=== PATIENT | female | born 1975 | race Caucasian/White ===

== ENCOUNTER 2019-12-11 06:31 | Day surgery (SDC) | payer OTHER ==
[2019-12-08 13:51] LABS: Urine Appearance CLOUDY; Urine Bilirubin NEGATIVE (NEG); Urine Blood TRACE (NEG); Urine Color YELLOW; Urine Glucose NEGATIVE (NEG); Urine Protein NEGATIVE (NEG); Urine Specific Gravity 1.025 (1.005-1.030)
[2019-12-08 13:52] LABS: Absolute Lymphocytes (CBC) 2.2 K/uL (0.7-4.9); Basophils % 0.8 % (0-1.3); Hematocrit 38.5 % (36.0-45.0); Lymphocytes % 26.2 % (15.3-44.8); MPV 7.9 fL (7.6-11.3); RBC Red Blood Cell Count 4.73 M/uL (3.86-4.86)
[2019-12-08 13:54] LABS: Urine Microscopic Reflex ORDER UMIC
[2019-12-08 14:04] LABS: Urine Bacteria <20 /HPF (<20); Urine Culture Reflex Order REFLEXED; Urine Mucus 2+ /HPF (NONE SEEN); Urine RBC <5 /HPF (NONE SEEN)
[2019-12-11 06:46] LABS: Specific Gravity 1.025 (1.005-1.030)
[2019-12-11] MEDS ORDERED: SCOPOLAMINE HYDROBROMIDE PATCH TD ONE ×2 (06:55→07:00)
[2019-12-11] MEDS ORDERED: Ringers Lactate 1,000 ML IV ONE ×2 (06:55→07:02)
[2019-12-11] MEDS ORDERED: BUPIVACAINE 0.25% PF 30 ML VIAL ONE (07:03)
[2019-12-11] MEDS ORDERED: propofoL 200 MG/20 ML VIAL IV ONE (07:28)
[2019-12-11] MEDS ORDERED: ROCURONIUM 50 MG/5 ML VIAL IV ONE (07:28)
[2019-12-11] MEDS ORDERED: dexAMETHasone 10 MG/ML VIAL ONE ×2 (07:28→11:44)
[2019-12-11] MEDS ORDERED: LIDOCAINE 2% MPF 5 ML VIAL ONE (07:29)
[2019-12-11] MEDS ORDERED: FENTANYL CITR 250 MCG/5 ML ONE (07:29)
[2019-12-11] MEDS ORDERED: KETOROLAC 30 MG/ML INJ ONE ×2 (07:29→11:58)
[2019-12-11] MEDS ORDERED: MIDAZOLAM HCL 2 MG/2 ML INJ ONE (07:30)
[2019-12-11] MEDS ORDERED: ONDANSETRON 4 MG/2 ML VIAL ONE ×2 (07:30→12:24)
[2019-12-11] MEDS: CEFAZOLIN/SWI 2gm 2 GM/20 ML SYR ONE ×2 (07:35→07:44)
[2019-12-11] MEDS: Ringers Lactate 1,000 ML IV ONE ×2 (08:39→08:48)
[2019-12-11] MEDS ORDERED: NS 0.9% VIAL 30 ML ONE (08:48)
[2019-12-11] MEDS ORDERED: VECURONIUM 10 MG/VIAL IV ONE (08:51)
[2019-12-11] MEDS ORDERED: MORPHINE 10 MG/ML VIAL ONE (10:01)
[2019-12-11] MEDS ORDERED: GLYCOPYRROLATE 0.2 MG/ML SYR ONE (10:40)
[2019-12-11] MEDS ORDERED: NEOSTIGMINE 1 MG/ML -5 ML ONE (10:48)
[2019-12-11] MEDS ORDERED: HYDROCODONE/APAP 5/325 MG TAB ONE (12:37)
[2019-12-11] MEDS ORDERED: PROMETHAZINE INJ 25 MG/ML AMP ONE (12:40)
[2019-12-11 13:03] VITALS: TEMP 98
[2019-12-11 13:05] VITALS: BP 126/63; O2SAT 98
--- NOTE | 2019-12-11 21:29 | OP ---
Date of Procedure: 12/11/2019 Surgeon: Lorri Cha MD Injection Molding Machine Operator: Nava Garcia. Preoperative Diagnoses: 1.Menorrhagia. 2.Endometrial atypia (AUB-M). Postoperative Diagnoses: 1.Menorrhagia. 2.Endometrial atypia (AUB-M). 3.Significant bladder adhesions and omental adhesions. Procedures Performed: Total laparoscopic hysterectomy, bilateral salpingo-oophorectomy, pelvic washi ngs, lysis of adhesions, omentum and bladder. Anesthesia: General endotracheal. Estimated Blood Loss: Minimal. Specimens: Uterus, bilateral tubes and ovaries, pelvic washings. Complications: None. Drains: None. Condition: Patient's condition is stable. Findings: Uterus completely adhered to the anterior abdominal wall. Significant dense adhesions. O mentum adhered to the uterus and the anterior abdominal wall as well, likely from the consequence of her section. There were bladder adhesions at the level of the scar as well. Indications: Patient is a 44-year-old with bleeding, on sampling had endometrial atypia. This has a 40% chance of underlying malignancy. The patient had already waited to do her surgery now. This wa s an urgent surgery that had to be done to prevent progression to invasive cancer or if invasive canc er was already present, that it would not advance by the time the COVID-19 crisis is complete and vicky t would change the outcome of the patient. Description Of Procedure: After informed consent was verified, patient was taken back to the OR and placed in a supine fashion on the operating table. General anesthesia given. Ancef 2 g were given. After she was placed in a dorsal lithotomy position, pelvic exam was performed. Cervix was pulled u p. Uterus appeared to be not mobile, stuck to the anterior abdominal wall, probably like to her C-se ction scar. No adnexal masses were palpable. Cul-de-sac free. After abdomen, vulva, vagina, and perineum were prepped and draped in a sterile fashion, a Thomson was placed to drain the bladder and attached with cysto-tubing for retrograde filling. Then, a large VCa re was introduced into the uterus and fixed in place. In the middle of the case after I encountered problems with the VCare cup being too large and could n ot see it at the level on the vaginal wall, which could lead to more loss of vaginal canal length, I changed it to a medium VCare. After 1 cm infraumbilical incision was made with a scalpel and fascia was tagged with 0 Vicryl suture s, peritoneum entered sharply. S-retractors were placed. Josemanuel introduced. Local injection was do ne at the level of the skin, the fascia, and also all the subsequent laparoscopic ports. A 5 mm left lower quadrant port was placed under direct vision. Upper abdomen unremarkable. Omentum unremarkable. The omentum was adhered to the anterior abdominal wall just below the level of the um bilicus all the way down to the uterus and on top of the uterus as well and the bladder. Omental adh esions were first taken down by push-spread technique creating windows. Once this was dropped down, then the uterine adhesions were visualized. Dissection was performed to separate the preperitoneal s pace and the bladder from the uterus, making sure that no part of the uterine wall was stuck with it. Once the bladder adhesions were taken down from the retroperitoneal space and the anterior abdomina l wall, then came down to the level of the adhesions at the scar. Then, peritoneum was ope raina up sideways going to the round ligament on the left side and onto the right side. Then came down and took down the adhesions in the suprapubic space getting to the vesicovaginal space. It was diff icult to identify the bladder and then the VCare cup was very low after filling and draining the blad santos knowing the margin of the bladder. Then, the VCare cup was changed as dictated before. Once thi s was done, it was much more visible and the bladder adhesions were systematically taken down with sh javier dissection all the way down to the level of the cup and passed it at least 1.5 cm to create a mar gin where I could close the vaginal cuff. Once this was done, the adhesions were taken down laterall y as well until I had the bladder pillars. I came down upon the top. Both ureters were visualized from the pelvic brim to the ureteric tunnel. There was no anatomical distortion at this point. On the right side, there was slight scarring lead ing to a pocket of omentum, possibly from her old endometriosis, but no implants were seen. The tube was taken on the left side with the LigaSure and removed and handed out. The left ovary was removed as well. Then, the utero-ovarian ligament taken down to separate this and this was using a Lapra-Ty placed in the right lower quadrant for later removal through the colpotomy incision. Then, the broad ligament was taken down. The broad ligament was dissected to expose the vessels. Th ere was significant amount of scarring here that was also taken down in order for me to expose the ve ssels. Posteriorly, the peritoneum was taken down to the level of the uterosacral. I was able to id entify a good plane, which took me down there. The ureter was very lateral inferior. On the opposite side, similar dissection was performed taking down the tube, then the utero-ovarian l igament, mesosalpinx. Then the round ligament was taken down. The broad ligament had significant am ount of scarring here as well and once this was taken down with a help of the LigaSure, the vessels w ere identified. Posteriorly, the peritoneum had to be picked up and separately dissected to the leve l of the uterosacral. Once the vessels were skeletonized, the anterior vaginal wall at the cup was c arefully dissected. Monopolar was used to enter the vesicovaginal space and the space was dissected inferiorly and there was good clearance of the bladder at this point as well as in the midline as wel l as on the lateral aspect. Then, the vessels were taken down with the help of the large bipolar tip and then the LigaSure was used to cauterize and cut the uterine artery and vein. Then, the cardinal ligaments and rest of the vessels were taken down with the help of the bipolar basket tip and the Ara Joya. Similar dissection was performed on the opposite side taking down the basket and taking down the vessels with the help of the basket tip and the LigaSure. Then, the cardinal ligaments were harsh en down as well. Then, the colpotomy was performed with a monopolar hook blade in a circumferential fashion. Specimen detached and pulled out through the vagina. Slight difficulty was encountered, but by rotating, we could easily pull it out. Then, the ovary on the right side was removed with the help of the LigaSure and both ovaries were retrieved through the vagina. Thorough irrigation and suction were performed. There was an anterior vaginal vessel that w as bleeding on the colpotomy and this was cauterized with the help of the medium tip bipolar. Closed the vaginal cuff with the help of 0 Vicryl sutures, 2 simple 0 Vicryl sutures at both angles, and 3 ninous-fr-wowbc in the center with excellent closure and support included the posterior wall, rectova ginal septum, and anterior vaginal wall connective tissue as well. With excellent closure and hemost asis, thorough irrigation and suction performed. Both ureters were visualized. No electrical, mecha nical, or thermal injury was noted. After the gas was desufflated, vaginal sponge was removed. Fole y was removed. Thorough irrigation and suction of the abdominal cavity was performed. All trocars w ere removed under direct vision. Fascia and skin injected with 0.25% Marcaine at all 3 incision site s. The fascia at the umbilicus was closed with a yyvfov-ai-nldjn with sutures tied to each other vicky t were placed for tension and then 0 Vicryl sutures simple at the suprapubic fascial incision. All s kin incisions were closed with the help of 3-0 chromic and then Steri-Strips placed. Vagina was ruslan raina up. Instrument, needle, and sponge counts correct at the end of the case. Patient tolerated the procedure well. She was taken to the PACU in a stable condition after full recovery. RENETTA/KOBI Voice ID: [id number] Report ID: [id number]
== END 2019-12-11 14:30 | disposition home or self-care (01) ==
LOC: OR 06:31
PROVIDERS: ATTEND Obstetrics & Gynecology
PROC: 0UT24ZZ Resection of Bilateral Ovaries, Percutaneous Endoscopic Approach (ICD-10-PCS; 2019-12-11)
PROC: 0UT74ZZ Resection of Bilateral Fallopian Tubes, Percutaneous Endoscopic Approach (ICD-10-PCS; 2019-12-11)
PROC: 0UT94ZZ Resection of Uterus, Percutaneous Endoscopic Approach (ICD-10-PCS; principal; 2019-12-11 07:30)
DX: N92.1 Excessive and frequent menstruation with irregular cycle (principal); N85.02 Endometrial intraepithelial neoplasia [EIN]; N95.1 Menopausal and female climacteric states; N83.12 Corpus luteum cyst of left ovary; N83.11 Corpus luteum cyst of right ovary; N32.89 Other specified disorders of bladder; K66.0 Peritoneal adhesions (postprocedural) (postinfection); I10 Essential (primary) hypertension; F32.9 Major depressive disorder, single episode, unspecified; F41.9 Anxiety disorder, unspecified; Z79.899 Other long term (current) drug therapy
CPT/HCPCS: 87088; 85025; 87086; 36415; 86900; 88108; 86850; 81025; 86901; 88305; 88309; 58571; J2704; J2550; J2250; J3010; J1100 ×2; J2710; J0690; J7120 ×3; J2405 ×2; 81003; 81015; 88307

== ENCOUNTER 2024-06-19 19:08 | Emergency (ER) | payer OTHER ==
--- OUTSIDE RECORDS SUMMARY | 2024-06-19 19:10 | XMS REPORT | Continuity of Care Document ---
Author Name Unknown Address [address] [place] [address] [address] [place] [address] [facility] Address [address] [facility] [address] [place] [address] Care Team Providers Care Financial Reporting Analyst Name Role Phone [email or web address] Attending Clinician NIGEL Mike Attending Clinician JAVIER Wolfe Attending Clinician JOSE ANGEL William Attending Clinician Unavailable [email or web address]_S Admitting Clinician Tommy adams Encounters Start Date/Time End Date/Time Encounter Type Admission Type Attending Clinicians Care Facility Care Department Encounter ID Source 2023-07-17 00:00:00 2023-07-17 00:00:00 Outpatient [email or web address] [email or web address]_S PRIV PRIV [id number] [facility] 2023-07-16 00:00:00 2023-07-16 00:00:00 Outpatient [email or web address] [email or web address] PRIV PRIV [id number] [facility] 2023-01-01 21:52:00 2023-01-02 01:39:00 Emergency ER NIGEL CRAIG [facility] [id number] [facility] 2021-03-13 19:25:00 2021-03-13 19:25:00 Outpatient JAVIER MILLER [facility] [id number] [facility] 2021-02-17 14:09:00 2021-02-17 16:45:00 Emergency ER JOSE ANGEL CAMP [facility] [id number] [facility]
--- NOTE | 2024-06-19 19:34 | ER ---
Nurse's Notes [facility] Name: Diane Judge Age: 49 yrs Sex: Female : 1975 Arrival Date: 06/19/2024 Time: 19:08 Bed 10 Private MD: Diagnosis: Post op incision bleeding Presentation: 06/19 19:19 Chief complaint: Patient states: Had Lap Adrianne on Sunday and today the tape from his cm10 umbilical incision came off and had some bleeding. pt states that she was told to come to the ED. Coronavirus screen: Client denies travel out of the [place] in the last 14 days. Ebola Screen: No symptoms or risks identified at this time. Initial Sepsis Screen: Does the patient meet any 2 criteria? No. Patient's initial sepsis screen is negative. Does the patient have a suspected source of infection? No. Patient's initial sepsis screen is negative. Risk Assessment: Do you want to hurt yourself or someone else? Patient reports no desire to harm self or others. Onset of symptoms was June 19, 2024. 19:19 Method Of Arrival: Ambulatory cm10 19:19 Acuity: DOROTA 4 cm10 Triage Assessment: 19:20 General: Appears in no apparent distress. comfortable, Behavior is calm, cooperative. cm10 Neuro: No deficits noted. Level of Consciousness is awake, alert, obeys commands, Oriented to person, place, time, situation, Appropriate for age. Respiratory: No deficits noted. Airway is patent Respiratory effort is even, unlabored, Respiratory pattern is regular, symmetrical. Historical: - Allergies: 19:20 No Known Allergies; cm10 - PMHx: 19:20 Hypertensive disorder; cm10 - PSHx: 19:20 Total abdominal hysterectomy; Cholecystectomy; cm10 - Immunization history:: Adult Immunizations up to date. - Infectious Disease History:: Denies. - Social history:: Smoking status: Patient denies any tobacco usage or history of. Screenin:52 [facility] ED Fall Risk Assessment (Adult) History of falling in the last 3 months, tm6 including since admission No falls in past 3 months (0 pts) Confusion or Disorientation No (0 pts) Intoxicated or Sedated No (0 pts) Impaired Gait No (0 pts) Mobility Assist Device Used No (0 pt) Altered Elimination No (0 pt) Score/Fall Risk Level 0 - 2 = Low Risk Oriented to surroundings, Maintained a safe environment, Educated pt \T\ family on fall prevention, incl call for assistance when getting out of bed. Abuse screen: Denies threats or abuse. Denies injuries from another. Nutritional screening: No deficits noted. Tuberculosis screening: No symptoms or risk factors identified. Assessment: 19:52 General: Appears in no apparent distress. Behavior is calm, cooperative. Pain: Denies tm6 pain. Neuro: Level of Consciousness is awake, alert, obeys commands, Oriented to person, place, time, situation. Cardiovascular: Patient's skin is warm and dry. Respiratory: Airway is patent Respiratory effort is even, unlabored, Respiratory pattern is regular, symmetrical. GI: No signs and/or symptoms were reported involving the gastrointestinal system. Abdomen is flat, non-distended. : No signs and/or symptoms were reported regarding the genitourinary system. EENT: No signs and/or symptoms were reported regarding the EENT system. Derm: slight bleeding from surgical site. Musculoskeletal: No signs and/or symptoms reported regarding the musculoskeletal system. Vital Signs: 19:19 BP 136 / 88; Pulse 79; Resp 16; Temp 97.5; Pulse Ox 100% on R/A; Weight 68.04 kg; cm10 Height 5 ft. 2 in. ; Pain 5/10; 19:54 BP 135 / 85; Pulse 80; Resp 17; Temp 97.5; Pulse Ox 100% on R/A; Pain 0/10; tm6 19:19 Body Mass Index 27.44 (68.04 kg, 157.48 cm) cm10 19:19 Pain Scale: Adult cm10 19:54 Pain Scale: Adult tm6 ED Course: 19:13 Patient arrived in ED. mg5 19:20 Triage completed. cm10 19:20 Arm band placed on Patient placed in an exam room, on a stretcher. cm10 19:22 Tito Norman, JANET is Primary Nurse. tm6 19:24 Grace Sterling PA-C is PHCP. sb4 19:24 Javy Ochoa DO is Attending Physician. sb4 19:32 Clarence Jara MD is Referral Physician. ms3 19:52 Patient has correct armband on for positive identification. Provided Education on: tm6 follow up with surgeon. 19:52 No provider procedures requiring assistance completed. Patient did not have IV access tm6 during this emergency room visit. 19:52 Dressings: non-adherent dressing x 1 umbilical area. tm6 Administered Medications: No medications were administered Medication: 19:52 VIS not applicable for this client. tm6 Outcome: 19:33 Discharge ordered by . ms3 19:52 Discharged to home ambulatory, with family, tm6 19:52 Condition: stable 19:52 Discharge instructions given to patient, family, Instructed on discharge instructions, follow up and referral plans. Demonstrated understanding of instructions, follow-up care, 19:54 Patient left the ED. tm6 Signatures: Javy Ochoa, DO ms3 Grace Sterling, PAAlyssiaC PA-C sb4 Bel Cerda, RN RN cm10 Winsome Kumar mg5 Tito Norman RN RN tm6
--- NOTE | 2024-06-19 19:55 | EDPHYS ---
Physician Documentation [facility] Name: Diane Judge Age: 49 yrs Sex: Female : 1975 Arrival Date: 06/19/2024 Time: 19:08 Bed 10 Private MD: ED Physician Javy Ochoa HPI: 06/19 19:47 This 49 yrs old Unknown Female presents to ER via Ambulatory with complaints of Post ms3 Surgical Bleeding. 19:47 49-year-old female with past medical history of hypertension presents to the emergency ms3 department for umbilical incision bleeding. Patient states she had a cholecystectomy performed on Sunday and today she noted her umbilical incision to have some blood coming from it. Patient denies pain.. Historical: - Allergies: 19:20 No Known Allergies; cm10 - PMHx: 19:20 Hypertensive disorder; cm10 - PSHx: 19:20 Total abdominal hysterectomy; Cholecystectomy; cm10 - Immunization history:: Adult Immunizations up to date. - Infectious Disease History:: Denies. - Social history:: Smoking status: Patient denies any tobacco usage or history of. ROS: 19:47 Constitutional: Negative for fever, and chills. Neck: Negative for injury, pain, and ms3 swelling, Cardiovascular: Negative for chest pain, and palpitations. Respiratory: Negative for shortness of breath, cough, wheezing, and pleuritic chest pain, MS/Extremity: Negative for injury and deformity, 19:47 Skin: Positive for Incision sites on abdomen, Exam: 19:47 Constitutional: This is a well developed, well nourished patient who is awake, alert, ms3 and in no acute distress. Cardiovascular: Regular rate and rhythm with a normal S1 and S2. No gallops, murmurs, or rubs. Normal PMI, no JVD. No pulse deficits. Respiratory: Lungs have equal breath sounds bilaterally, clear to auscultation and percussion. No rales, rhonchi or wheezes noted. No increased work of breathing, no retractions or nasal flaring. Abdomen/GI: Soft, non-tender, with normal bowel sounds. No distension or tympany. No guarding or rebound. No evidence of tenderness throughout. 19:47 Skin: Umbilical incision with dried blood surrounding. Dermabond in place. No surrounding erythema, no purulent drainage. Incision intact. Vital Signs: 19:19 BP 136 / 88; Pulse 79; Resp 16; Temp 97.5; Pulse Ox 100% on R/A; Weight 68.04 kg; cm10 Height 5 ft. 2 in. ; Pain 5/10; 19:54 BP 135 / 85; Pulse 80; Resp 17; Temp 97.5; Pulse Ox 100% on R/A; Pain 0/10; tm6 19:19 Body Mass Index 27.44 (68.04 kg, 157.48 cm) cm10 19:19 Pain Scale: Adult cm10 19:54 Pain Scale: Adult tm6 MDM: 19:24 Patient medically screened. sb4 19:47 Differential Diagnosis Postoperative incision bleeding. Data reviewed: vital signs, ms3 nurses notes, and as a result, I will discharge patient. Counseling: I had a detailed discussion with the patient and/or guardian regarding the historical points, exam findings, and any diagnostic results supporting the discharge/admit diagnosis, the need for outpatient follow up, to return to the emergency department if symptoms worsen or persist or if there are any questions or concerns that arise at home. Special discussion: I discussed with the patient/guardian in detail that at this point there is no indication for admission to the hospital. It is understood, however, that if the symptoms persist or worsen the patient needs to return immediately for re-evaluation. ED course: Discussed physical exam findings with patient and her . Patient to follow-up with Dr. Jara in 2 to 3 days. Patient understands and agrees with plan. All questions were answered. Return precautions discussed include worsening symptoms, or any other concerns. At time of discharge incision hemostatic. Administered Medications: No medications were administered Disposition: 20:03 Chart complete. ms3 Disposition Summary: 06/19/24 19:33 Discharge Ordered Notes: Location: Home ms3 Condition: Stable ms3 Diagnosis - Post op incision bleeding ms3 Followup: ms3 - With: Clarence Jara MD - When: 2 - 3 days - Reason: Recheck today's complaints Discharge Instructions: - Discharge Summary Sheet ms3 - Incision Care, Adult, [id number] ms3 Forms: - Medication Reconciliation Form ms3 - Antibiotic Education ms3 - Prescription Opioid Use ms3 - Patient Portal Instructions ms3 - Leadership Thank You Letter ms3 Signatures: Javy Ochoa DO DO ms3 Grace Sterling, PA-Jorge PA-C sb4 Bel Cerda, RN RN cm10
[2024-06-20 08:10] VITALS: TEMP 97.5; O2SAT 100
[2024-06-20 08:11] VITALS: BP 135/85
== END 2024-06-19 19:54 | disposition home or self-care (01) ==
LOC: ER 19:08
DX: L76.22 Postprocedural hemorrhage of skin and subcutaneous tissue following other procedure (principal); Z90.49 Acquired absence of other specified parts of digestive tract
CPT/HCPCS: 99283